=== PATIENT | female | born 1980 | race Two or more races ===

== ENCOUNTER 2022-04-10 20:26 | Emergency (ER) | payer MEDICAID, OTHER ==
[~2022-04-10] VITALS: Ht 162.6 cm; Wt 73.1 kg
[2022-04-10 23:17] LABS: Basophils # (auto) 0 10 ^3/uL (0-0.2); Basophils % (auto) 0.2 % (0.0-2.0); Eosinophils # (auto) 0 10 ^3/uL (0-0.8); Eosinophils % (auto) 0.3 % (0.0-7.0); Hematocrit 42.5 % (36.0-46.0); Hemoglobin 13.6 g/dL (12.2-16.2); Lymphocytes # (auto) 1.5 10 ^3/uL (0.4-5.4); Lymphocytes % (auto) 11.3 % (10.0-50.0); Mean Corpuscular Hemoglobin 28.3 pg (28.0-32.0); Mean Corpuscular Volume 88.4 fL (80.0-100.0); Monocytes # (auto) 0.4 10 ^3/uL (0-1.3); Neutrophils # (auto) 11.2 10 ^3/uL (1.6-8.6); Neutrophils % (auto) 85.2 % (37.0-80.0); Red Blood Cells 4.81 10^6/uL (4.0-5.20); White Blood Cell 13.1 10^3/uL (4.4-10.8)
[2022-04-10 23:28] LABS: Potassium 3.6 mmol/L (3.5-5.1)
[2022-04-10 23:31] LABS: Albumin 3.7 g/dL (3.4-5.0)
[2022-04-10 23:34] LABS: Bilirubin, Total 0.4 mg/dL (0.2-1.0); Total Protein 7.8 g/dL (6.4-8.2)
[2022-04-11] MEDS ORDERED: ONDA-144 PO (02:02)
[2022-04-11] MEDS ORDERED: PERCOT PO (02:02)
[2022-04-11] MEDS ORDERED: CIPR-173 PO (02:02)
[2022-04-11] MEDS ORDERED: TAM04C PO (02:02)
[2022-04-11 02:30] VITALS: BP 136/83
[2022-04-11] MEDS ORDERED: OXYCODONE W/ ACETAMINOPHEN 5/325MG TABLET PO ONE (03:00)
[2022-04-11] MEDS ORDERED: ONDANSETRON HCL 4 MG/2 ML VIAL IV ONE (03:00)
== END 2022-04-11 03:15 | disposition home or self-care (01) ==
LOC: ER 20:26 → EDUNIT# 20:26 → EDBD 20:26 → ER 04-11 03:14
DX: N20.0 Calculus of kidney (principal); Z88.1 Allergy status to other antibiotic agents; Z91.018 Allergy to other foods
CPT/HCPCS: 36415; 71045; 74176; 80053; 83690; 85025; 93005; 96374; 99285; J2405